=== PATIENT | male | born 1950 | race Caucasian/White ===

== ENCOUNTER → 2017-11-22 | Outpatient (CLI) | payer OTHER | LOC: CLAB 09:04 | PROVIDERS: ATTEND Family Medicine | DX: M51.46 Schmorl's nodes, lumbar region (principal); I70.209 Unspecified atherosclerosis of native arteries of extremities, unspecified extremity; M51.34 Other intervertebral disc degeneration, thoracic region; M50.322 Other cervical disc degeneration at C5-C6 level | CPT/HCPCS: 72100-PO ==

== ENCOUNTER → 2017-11-29 | Outpatient (CLI) | payer OTHER | LOC: FIMAGING 18:26 | PROVIDERS: ATTEND Family Medicine | DX: M54.6 Pain in thoracic spine (principal); G89.29 Other chronic pain; M51.46 Schmorl's nodes, lumbar region; M43.06 Spondylolysis, lumbar region; M43.04 Spondylolysis, thoracic region; M40.204 Unspecified kyphosis, thoracic region; M48.061 Spinal stenosis, lumbar region without neurogenic claudication; M48.04 Spinal stenosis, thoracic region ==

== ENCOUNTER → 2017-12-27 | Outpatient (CLI) | payer OTHER | LOC: FIMAGING 11:11 | PROVIDERS: ATTEND Family Medicine | DX: Z13.820 Encounter for screening for osteoporosis (principal); M85.89 Other specified disorders of bone density and structure, multiple sites; R93.7 Abnormal findings on diagnostic imaging of other parts of musculoskeletal system; M51.47 Schmorl's nodes, lumbosacral region ==